=== PATIENT | female | born 1985 | race Caucasian/White ===

== ENCOUNTER 2016-11-15 18:06 | Inpatient (IN) | payer SELFPAY ==
[~2016-11-15] VITALS: Ht 157.5 cm; Wt 57.2 kg
[2016-11-15] MEDS ORDERED: LACTATED RINGERS 1,000 ML IV SCH ×2 (19:04→19:13)
[2016-11-15 19:17] LABS: BASOPHILS % 0.4 % (0.0-2.0); EOSINOPHILS % 0.4 % (0.0-5.0); HEMATOCRIT. 31.4 % (36.0-48.0); HEMOGLOBIN. 10.4 g/dL (12.0-16.0); LYMPHOCYTES % 9.2 % (20.0-50.0); MEAN CORPUSCULAR HEMOGLOBIN 27.2 pg (28.0-32.0); MEAN CORPUSCULAR VOLUME 81.8 fL (81.0-99.0); MEAN PLATELET VOLUME 7.8 fl (7.4-10.4); MONOCYTES % 5.1 % (2.0-8.0); NEUTROPHILS % 84.9 % (40.0-76.0); PLATELET 374 x1000/uL (130-400); RED BLOOD CELL COUNT 3.84 mill/uL (4.2-5.4); RED CELL DISTRIBUTION WIDTH 14.4 % (11.6-14.6)
[2016-11-15 19:23] LABS: INR 0.9; PARTIAL THROMBOPLASTIN TIME 30.9 sec (24.0-34.0); PROTHROMBIN TIME 9.7 sec
[2016-11-15] MEDS ORDERED: NALOXONE HCL 0.4 MG/ML 1ML VIAL IM PRN (19:45)
[2016-11-15] MEDS ORDERED: LIDOCAINE HCL 1% 20ML VIAL (Pyxis) INJ INFIL SCH (19:45)
[2016-11-15] MEDS ORDERED: CARBOPROST TROMETHAMINE 250 MCG/ML AMPUL IM PRN (19:45)
[2016-11-15] MEDS ORDERED: METHYLERGONOVINE MALEATE 0.2 MG/ML IM PRN (19:45)
[2016-11-15 19:50] LABS: RUBELLA IGG 30.1 IU/mL (4.99-10)
[2016-11-15 19:51] LABS: HEPATITIS B SURFACE ANTIGEN NEGATIVE
[2016-11-15] MEDS: DEXT 5%/LR + PITOCIN 20UNITS/L 1,000 ML IV SCH ×3 (20:29→23:56)
[2016-11-15] MEDS ORDERED: DEXT 5%/LR + PITOCIN 20UNITS/L 1,000 ML IV SCH (20:47)
[2016-11-15] MEDS ORDERED: DIPHENHYDRAMINE 25MG CAPSULE PO PRN (21:00)
[2016-11-15] MEDS ORDERED: ACETAMINOPHEN WITH CODEINE 300/30MG TABLET PO PRN ×2 (21:00)
[2016-11-15] MEDS ORDERED: RHO(D) IMMUNE GLOBULIN 300 MCG/SYR IM PRN (21:00)
[2016-11-15] MEDS ORDERED: GLYCERIN/WITCH HAZEL LEAF MEDICATED PAD TOP PRN (21:00)
[2016-11-15] MEDS ORDERED: BENZOCAINE/LANOLIN/ALOE VERA SPRAY TOP PRN (21:00)
[2016-11-15] MEDS ORDERED: IBUPROFEN 400MG TABLET PO PRN (21:00)
[2016-11-15 21:40] LABS: CLARITY URINE CLEAR (CLEAR); COLOR URINE DARK YELLOW (YELLOW); GLUCOSE URINE NEGATIVE (NEGATIVE); KETONES URINE 1+ (NEGATIVE); LEUKOCYTE ESTERASE URINE NEGATIVE (NEGATIVE); NITRITE URINE NEGATIVE (NEGATIVE); OCCULT BLOOD URINE NEGATIVE (NEGATIVE); PH URINE 7.5 (4.5-8.0); PROTEIN URINE TRACE (NEGATIVE); SPECIFIC GRAVITY URINE 1.024 (1.005-1.030)
[2016-11-15 21:55] LABS: *BARBITURATES SCREEN URINE NEGATIVE (NEGATIVE); *BENZODIAZEPINES SCREEN URINE NEGATIVE (NEGATIVE); *COCAINE SCREEN URINE NEGATIVE (NEGATIVE); CANNABINOID URINE SCREEN NEGATIVE (NEGATIVE); METHADONE URINE SCREEN NEGATIVE (NEGATIVE); OPIATES URINE SCREEN NEGATIVE (NEGATIVE); PHENCYCLIDINE URINE SCREEN NEGATIVE (NEGATIVE)
[2016-11-15 22:04] LABS: *AMPHETAMINES SCREEN URINE PRESUMTIVE POSITIVE (NEGATIVE)
[2016-11-16] VITALS: BP 114/54
[2016-11-16 04:00] VITALS: BP 103/57
[2016-11-16 06:32] LABS: BASOPHILS % 0.3 % (0.0-2.0); HEMOGLOBIN. 9.4 g/dL (12.0-16.0); LYMPHOCYTES % 15.7 % (20.0-50.0); MEAN CORPUSCULAR HEMOGLOBIN 27.6 pg (28.0-32.0); MEAN CORPUSCULAR VOLUME 81.9 fL (81.0-99.0); MEAN PLATELET VOLUME 7.6 fl (7.4-10.4); MONOCYTES % 6.2 % (2.0-8.0); NEUTROPHILS % 76.8 % (40.0-76.0); PLATELET 297 x1000/uL (130-400); RED BLOOD CELL COUNT 3.41 mill/uL (4.2-5.4); RED CELL DISTRIBUTION WIDTH 14.1 % (11.6-14.6)
[2016-11-16 08:00] VITALS: BP 106/50
[2016-11-16] MEDS: DEXT 5%/LR + PITOCIN 20UNITS/L 1,000 ML IV SCH (08:16)
[2016-11-16] MEDS ORDERED: PRENATAL VIT/FE FUMARATE/FA TABLET PO SCH (09:00)
[2016-11-16 12:00] VITALS: BP 95/52
[2016-11-16 13:35] VITALS: BP 95/52
[2016-11-21 08:17] LABS: AMPHETAMINE CONF URINE Positive (.)
== END 2016-11-16 14:25 | disposition home or self-care (01) | DRG 560 ==
LOC: L&D 18:06 → OBSVTOIN 18:06 → 6EST 11-16 00:25
PROVIDERS: ADMIT Obstetrics & Gynecology; ATTEND Obstetrics & Gynecology
PROC: 10E0XZZ Delivery of Products of Conception, External Approach (ICD-10-PCS; principal; 2016-11-15 19:50)
DX: O42.912 Preterm premature rupture of membranes, unspecified as to length of time between rupture and onset of labor, second trimester (principal); O60.12X0 Preterm labor second trimester with preterm delivery second trimester, not applicable or unspecified; O69.81X0 Labor and delivery complicated by cord around neck, without compression, not applicable or unspecified; Z3A.22 22 weeks gestation of pregnancy; Z37.1 Single stillbirth
CPT/HCPCS: 36415; 76805; 76818; 80305; 80307; 81001; 85025; 85610; 85730; 86592; 86703; 86762; 86850; 86900; 87340; 88307; G0378; J2590; J7120